=== PATIENT | male | born 1980 | race Hispanic/Latino ===

== ENCOUNTER 2022-04-28 19:41 | Emergency (ER) | payer SELFPAY ==
[2022-04-28] VITALS (8 sets, daily range): BP systolic 108–127; BP diastolic 58–73
[~2022-04-28] VITALS: Ht 170.2 cm; Wt 70.0 kg
[2022-04-28] MEDS ORDERED: MULTI VIT PO (20:13)
[2022-04-28 20:14] LABS: BASO% 0.7 % (0-3); EOS% 4.5 % (0-8); HEMATOCRIT 37.4 % (39.0-50.0); HEMOGLOBIN 12.8 g/dl (14.0-18.0); IMMATURE GRANULOCYTES 0.1 % (0.0-5.0); LYMPH% 28.3 % (15-41); MEAN CORPUSCULAR HGB 31.8 pG CALC (26.0-32.0); MEAN CORPUSCULAR HGB CONC 34.2 g/dL CAL (32.0-36.0); MONO% 12.2 % (2-13); NEUT# 4.36 thou/uL (1.82-7.42); NEUT% 54.2 % (42-76); RED BLOOD COUNT 4.02 mill/uL (4.70-6.10); RED CELL DISTRI WIDTH 12.5 % (11.5-15.5); URINE BILIRUBIN - DIPSTICK NEGATIVE (NEGATIVE); URINE BLOOD DIPSTICK NEGATIVE (NEGATIVE); URINE COLOR YELLOW; URINE GLUCOSE - DIPSTICK NEGATIVE (NEGATIVE); URINE KETONE NEGATIVE (NEGATIVE); URINE LEUK ESTERASE NEGATIVE (NEGATIVE); URINE PROTEIN - DIPSTICK NEGATIVE (NEG-TRACE); URINE SPECIFIC GRAVITY >=1.030; URINE UROBILINOGEN - DIPSTICK 0.2 E.U./dL (0.2)
[2022-04-28 20:19] LABS: URINE NITRITE - DIPSTICK NEGATIVE (Negative)
[2022-04-28 20:33] LABS: ALBUMIN 4.5 g/dL (3.2-5.0); ALKALINE PHOSPHATASE 67 u/l (38-126); ANION GAP 9 (6-22 (CALC)); BILIRUBIN, TOTAL 0.2 mg/dL (0.0-1.4); BUN 14 mg/dL (9-20); BUN/CREATININE RATIO 19 (12-20 (CALC)); CARBON DIOXIDE 29 mmol/l (22-30); CHLORIDE 102 mmol/l (95-108); CREATININE 0.7 mg/dL (0.7-1.3); GFR FOR AFR.AMER. > 60 ML/MIN (>=60 (CALC)); GFR OTHER RACES > 60 ML/MIN (>=60 (CALC)); POTASSIUM 3.5 mmol/l (3.5-5.1); SGOT/AST 36 u/l (17-59); SODIUM 137 mmol/l (137-146); TOTAL PROTEIN 7.4 g/dL (6.3-8.2)
[2022-04-28 21:27] LABS: TSH, 3RD GENERATION 3.69 uIU/mL (0.47 - 4.68)
== END 2022-04-28 21:35 | disposition home or self-care (01) | DRG 310 ==
LOC: ED 19:41
PROVIDERS: Emergency Medicine; Nurse Practitioner
DX: R00.2 Palpitations (principal); F12.10 Cannabis abuse, uncomplicated